=== PATIENT | male | born 1975 | race Caucasian/White ===

== ENCOUNTER 2017-03-23 03:23 | Emergency (ER) | payer MEDICAID ==
[~2017-03-23] VITALS: Ht 177.8 cm; Wt 111.6 kg
[~2017-03-23 03:23] MED LIST: CLON-352 PO; HYDR-3535 PO; LISI-363 PO
[2017-03-23 03:27] VITALS: BP 174/106; PULSE 67; RESP 18; TEMP 97.6; O2SAT 96
[2017-03-23] MEDS ORDERED: LISI-515 PO (03:34)
[2017-03-23] MEDS ORDERED: CLON0.1T PO (03:34)
[2017-03-23] MEDS ORDERED: LISI20TA PO (03:34)
[2017-03-23 03:35] VITALS: BP 174/106; PULSE 67; TEMP 97.6; O2SAT 96
[2017-03-23] MEDS ORDERED: PRED50 PO (03:54)
--- NOTE | 2017-03-23 03:55 | PD ---
HPI Chief Complaint: Skin Problem Time Seen by Provider: 03:28 Travel History International Travel<30 days: No Contact w/Intl Traveler<30days: No Traveled to known affect area: No History of Present Illness HPI The patient is a 41-year-old male that complains of an extremely pruritic rash primarily on these PACs and legs and upper arms for 2 days. 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 He does not use any sprays. He has not changed fabric softeners at home. His and children do not have a similar rash. He sleeps with his in the same bed. He denies any fever or cough. PFSH Past Medical History Diminished Hearing: No Hypertension: Yes Immunizations Current: No Past Surgical History Surgical History: No Previous Surgery Body Medical Devices: TESTOSTERONE IMPLANT Social History Alcohol Use: No (2 BEERS MONTH) Tobacco Use: No Substance Use: No Allergies-Medications (Allergen,Severity, Reaction): Coded Allergies: No Known Allergies (Unverified Adverse Reaction, Unknown, 03/23/17) Reported Meds & Prescriptions Reported Meds & Active Scripts Active Reported Clonidine (Clonidine HCl) 0.1 Mg Tab 0.1 Mg PO BID Lisinopril-Hctz 20-12.5 Mg Tab 1 Tab PO DAILY Review of Systems Except as stated in HPI: all other systems reviewed are Neg Physical Exam Narrative GENERAL: Well-nourished, well-developed patient in slight apparent distress with his pruritic rash SKIN: Focused skin assessment warm/dry. There is an erythematous, papular, confluent rash distributed on the trunk, mainly on the back, upper arms and upper legs. I do not see any burrows. He does not have this rash between his fingers, there is no concentration around the belt line. HEAD: Normocephalic. EYES: No scleral icterus. No injection or drainage. NECK: Supple, trachea midline. No JVD or lymphadenopathy. CARDIOVASCULAR: Regular rate and rhythm without murmurs, gallops, or rubs. RESPIRATORY: Breath sounds equal bilaterally. No accessory muscle use. GASTROINTESTINAL: Abdomen soft, non-tender, nondistended. MUSCULOSKELETAL: No cyanosis, or edema. BACK: Nontender without obvious deformity. No CVA tenderness. Data Data Last Documented VS Vital Signs Date Time Temp Pulse Resp B/P (MAP) Pulse Ox O2 Delivery O2 Flow Rate FiO2 03/23/17 03:35 97.6 67 174/106 (128) 96 03/23/17 03:27 18 MDM Medical Decision Making Medical Screen Exam Complete: Yes Emergency Medical Condition: Yes Medical Record Reviewed: Yes Differential Diagnosis Allergic rash, scabies, viral exanthem-unlikely, chemical irritation Narrative Course The patient likely has allergic rash. Despite sleeping in the same bed with his , his does not have this rash. I do not see any burrows in the distribution is slightly different than the typical scabies rash. Plan: The patient be put on prednisone 50 mg twice daily for 4 days followed by 50 mg one day's daily for 4 days. The rash is too widespread to use a cream. Diagnosis Primary Impression: Rash due to allergy Additional Instructions: At this time this appears as an allergic rash. Obviously, if your and children started to get this rash he should be very suspicious of scabies. Follow-up with a drop forge operator. At this time I do not know what you are allergic to. Med/Other Pt SpecificInfo: Prescription(s) given Scripts Prednisone (Prednisone) 50 Mg Tab 50 MG PO BID for X 4 days than daily X 4 days, #12 TAB 0 Refills Prov: Jerome Damon MD 03/23/17 Disposition: 01 DISCHARGE HOME Condition: Stable Jerome Damon MD Mar 23, 2017 03:55
[2017-03-23] MEDS ORDERED: ZANT150T2 PO (03:58)
[2017-03-23] MEDS ORDERED: predniSONE 20 MG TAB PO ONE (04:00)
== END 2017-03-23 04:06 | disposition home or self-care (01) ==
LOC: PHED 03:23
DX: R21 Rash and other nonspecific skin eruption (principal); I10 Essential (primary) hypertension; Z79.899 Other long term (current) drug therapy
CPT/HCPCS: 99283; J7512

== ENCOUNTER 2017-03-30 08:37 | Emergency (ER) | payer MEDICAID ==
[~2017-03-30] VITALS: Ht 177.8 cm; Wt 107.0 kg
[~2017-03-30 08:37] MED LIST changes: -CLON-352 PO; +CLON0.1T PO; -HYDR-3535 PO; -LISI-363 PO; +LISI20TA PO; +PRED50 PO; +ZANT150T2 PO
[2017-03-30 08:41] VITALS: BP 174/87; PULSE 74; RESP 12; TEMP 98.5; O2SAT 99
[2017-03-30] MEDS ORDERED: cloNIDine HCL 0.1 MG TAB PO ONE (10:45)
--- NOTE | 2017-03-30 10:46 | PD ---
HPI Chief Complaint: Medication Refill Request Time Seen by Provider: 10:39 Travel History International Travel<30 days: No Contact w/Intl Traveler<30days: No Traveled to known affect area: No History of Present Illness HPI patient has been out of his bp meds for a month, and is here for refills, no actual complaint at this time. PFSH Past Medical History Diminished Hearing: No Hypertension: Yes Immunizations Current: No Past Surgical History Body Medical Devices: TESTOSTERONE IMPLANT Social History Alcohol Use: No (2 BEERS MONTH) Tobacco Use: No Substance Use: No Allergies-Medications (Allergen,Severity, Reaction): Coded Allergies: No Known Allergies (Unverified Adverse Reaction, Unknown, 03/30/17) Reported Meds & Prescriptions Reported Meds & Active Scripts Active Zantac (Ranitidine HCl) 150 Mg Tab 150 Mg PO BID Prednisone 50 Mg Tab 50 Mg PO BID Reported Clonidine (Clonidine HCl) 0.1 Mg Tab 0.1 Mg PO BID Lisinopril-Hctz 20-12.5 Mg Tab 1 Tab PO DAILY Review of Systems Except as stated in HPI: all other systems reviewed are Neg Physical Exam Narrative GENERAL: SKIN: Warm and dry. HEAD: Atraumatic. Normocephalic. EYES: Pupils equal and round. No scleral icterus. No injection or drainage. ENT: No nasal bleeding or discharge. Mucous membranes pink and moist. NECK: Trachea midline. No JVD. CARDIOVASCULAR: Regular rate and rhythm. RESPIRATORY: No accessory muscle use. Clear to auscultation. Breath sounds equal bilaterally. GASTROINTESTINAL: Abdomen soft, non-tender, nondistended. MUSCULOSKELETAL: Extremities without clubbing, cyanosis, or edema. No obvious deformities. NEUROLOGICAL: Awake and alert. No obvious cranial nerve deficits. Motor grossly within normal limits. Five out of 5 muscle strength in the arms and legs. Normal speech. PSYCHIATRIC: Appropriate mood and affect; insight and judgment normal. Data Data Last Documented VS Vital Signs Date Time Temp Pulse Resp B/P (MAP) Pulse Ox O2 Delivery O2 Flow Rate FiO2 03/30/17 08:41 98.5 74 12 174/87 (116) 99 Orders Orders Clonidine (Catapres) (03/30/17 10:45) MDM Medical Decision Making Medical Screen Exam Complete: Yes Emergency Medical Condition: Yes Medical Record Reviewed: Yes Differential Diagnosis n/a Narrative Course patient doing well, no distress and appears to be compliant outside of a financial issue, advised to refill meds at [facility] since they are free. Diagnosis Primary Impression: HTN (hypertension) Qualified Codes: I10 - Essential (primary) hypertension Additional Impression: Medication refill Patient Instructions: General Instructions, Medication Refill, ED Scripts Lisinopril (Lisinopril) 10 Mg Tab 10 MG PO DAILY, #30 TAB 0 Refills Prov: Yordy Chang MD 03/30/17 Hydrochlorothiazide (Hydrochlorothiazide) 25 Mg Tab 25 MG PO DAILY, #30 TAB 0 Refills Prov: Yordy Chang MD 03/30/17 Disposition: 01 DISCHARGE HOME Condition: Stable Yordy Chang MD Mar 30, 2017 10:46
[2017-03-30] MEDS ORDERED: HYDR25TA5 PO (10:54)
[2017-03-30] MEDS ORDERED: LISI10TA3 PO (10:54)
== END 2017-03-30 11:02 | disposition home or self-care (01) ==
LOC: NEPD 08:37
DX: I10 Essential (primary) hypertension (principal); Z76.0 Encounter for issue of repeat prescription
CPT/HCPCS: 99284